=== PATIENT | female | born 1945 | race Two or more races ===

== ENCOUNTER 2020-10-27 06:00 | Day surgery (SDC) | payer OTHER ==
[~2020-10-27 06:00] MED LIST: CLONAZEPAM0.5 MG PO; COZAAR100 MG PO; MULTIPLE VITAM1 EAC2 PO
== END 2020-10-27 14:10 | disposition home or self-care (01) ==
LOC: CIR.AMB 06:00
PROVIDERS: ATTEND Orthopaedic Surgery Hand Surgery
DX: G56.01 Carpal tunnel syndrome, right upper limb (principal); M65.321 Trigger finger, right index finger; M65.331 Trigger finger, right middle finger; Z20.822 Contact with and (suspected) exposure to COVID-19

== ENCOUNTER 2023-11-15 09:40 | Outpatient (CLI) | payer OTHER | END 2023-11-15 09:47 | disposition home or self-care (01) | LOC: RX STUDY 09:40 | PROVIDERS: ATTEND General Practice | DX: N32.1 Vesicointestinal fistula (principal); N39.0 Urinary tract infection, site not specified ==